=== PATIENT | female | born 1975 | race Hispanic/Latino ===

== ENCOUNTER → 2024-04-17 | Outpatient (CLI) | payer BC ==
[~2024-04-17] MED LIST: DICY20TA3 PO; TRAM50TA4 PO
--- NOTE | 2024-04-17 13:47 | HMCIMG ---
CT ABDOMEN/PELVIS W/O CONTRAST REASON: Unspecified abdominal hernia without obstruction or gangrene COMPARISON: 2 FINDINGS: Lung bases are clear. There are no focal liver lesions. There are normal-appearing kidneys.. Spleen and pancreas appear unremarkable. There has been a previous cholecystectomy. Bowel loops appear unremarkable. This includes normal appearance of the appendix There is no evidence of free fluid or intraperitoneal air. There are no focal fluid collections. Aorta and retroperitoneum appear normal. There is a simple appearing 4.2 x 4.3 x 7.9 cm cyst left adnexa region. There is no perceptible wall thickness. There are no internal septations or solid components. Uterus is absent. Urinary bladder appears normal. Remaining pelvic soft tissue structures appear unremarkable. The anterior abdominal wall is intact. Osseous structures appear unremarkable. IMPRESSION: 1. Normal-appearing anterior abdominal wall, no evidence of ventral hernia. 2. 4.2 x 4.3 x 7.9 cm simple appearing cyst left adnexal region. 3. Otherwise unremarkable noncontrast CT abdomen and pelvis. CT was performed with one or more following dose reduction techniques: automated exposure control, adjustment of the mA and kv according to patient's size, or use of a iterative reconstruction technique.
== END | disposition home or self-care (01) ==
LOC: RAH 12:40
PROVIDERS: ATTEND Internal Medicine
DX: K46.9 Unspecified abdominal hernia without obstruction or gangrene (principal); Z90.49 Acquired absence of other specified parts of digestive tract
CPT/HCPCS: 74176